=== PATIENT | female | born 1995 | race Two or more races ===

== ENCOUNTER → 2024-11-15 | Outpatient (CLI) | payer OTHER | LOC: M CARPUL 14:41 | PROVIDERS: ATTEND Student in an Organized Health Care Education/Training Program | DX: R06.00 Dyspnea, unspecified (principal) ==

== ENCOUNTER 2024-12-17 10:25 | Emergency (ER) | payer OTHER ==
[~2024-12-17] VITALS: Ht 175.3 cm; Wt 68.0 kg
[2024-12-17] MEDS ORDERED: FAMO1TAB11 (10:31)
[2024-12-17] MEDS: LIDOCAINE 1% MDV 20ML VIAL SC ONE (12:25)
[2024-12-17 12:44] VITALS: BP 116/84; TEMP 98.6; O2SAT 100
[2024-12-17] MEDS: EMLA CREAM 5GM TUBE (LIDOCAINE/PRILOCAINE) TOP ONE (12:58)
[2024-12-17] MEDS: IBUPROFEN 600MG TAB PO ONE (13:00)
[2024-12-17] MEDS: BOOSTRIX VACCINE (TETANUS/DIPHTH/ACEL. PERTUSSIS) 0.5ML SYR IM ONE (13:01)
== END 2024-12-17 13:55 | disposition home or self-care (01) ==
LOC: M ED 10:25
DX: S61.213A Laceration without foreign body of left middle finger without damage to nail, initial encounter (principal); W26.8XXA Contact with other sharp object(s), not elsewhere classified, initial encounter; J45.909 Unspecified asthma, uncomplicated; Y92.000 Kitchen of unspecified non-institutional (private) residence as the place of occurrence of the external cause; Y93.89 Activity, other specified; Y99.9 Unspecified external cause status; Z23 Encounter for immunization; Z79.899 Other long term (current) drug therapy

== ENCOUNTER → 2025-05-02 | Outpatient (CLI) | payer OTHER ==
[~2025-05-02] MED LIST: FAMO1TAB11; METHACHOLINE KIT (6 VIAL.NEB PREMIX) INH ONE
== END ==
LOC: M CARPUL 11:27
PROVIDERS: ATTEND Student in an Organized Health Care Education/Training Program
DX: J45.909 Unspecified asthma, uncomplicated (principal)

== ENCOUNTER → 2025-06-12 | Outpatient (CLI) | payer OTHER ==
[~2025-06-12] MED LIST changes: -METHACHOLINE KIT (6 VIAL.NEB PREMIX) INH ONE
== END ==
LOC: M RAD 09:11
PROVIDERS: ATTEND Internal Medicine Cardiovascular Disease
DX: I71.9 Aortic aneurysm of unspecified site, without rupture (principal)